=== PATIENT | female | born 1995 ===

== ENCOUNTER 2018-01-02 20:04 | Emergency (ER) | payer SELFPAY ==
[2018-01-02 20:15] VITALS: O2SAT 100
[2018-01-02] MEDS ORDERED: Sodium Chloride 0.9% 1,000 ML IV ONE (20:28)
[2018-01-02] MEDS ORDERED: Acetaminophen 650mg/20.3ml solution UD PO STA (20:29)
--- NOTE | 2018-01-02 20:33 | C.PDOC ---
History Of Present Illness 22 year old female with PMHx of anxiety presents to the ED for evaluation of a syncopal episode. Patient reports that while getting out of the shower today she blacked out for a few seconds, but she did not fall or hit her head. Patient is also c/o sore throat earlier today and states her hemorrhoids "are acting up". Patient denies fever, chills, nausea, vomit, diarrhea, back pain, LOC, headache. Time Seen by Provider: 01/02/18 20:17 Chief Complaint (Nursing): Syncope History Per: Patient History/Exam Limitations: no limitations Onset/Duration Of Symptoms: Hrs Current Symptoms Are (Timing): Gone Number Of Syncopal Episodes: 1 Activity At Onset Of Symptoms: Standing Associated Symptoms Preceding Syncopal Episode: No Predromal Symptoms (Sudden Onset) Seizure Or Post-ictal Symptoms: None Fall Associated With With Symptoms: No Recent travel outside of the [place]: No Additional History Per: Patient Past Medical History Reviewed: Historical Data, Nursing Documentation, Vital Signs Vital Signs: Last Vital Signs Temp 99.1 F 01/02/18 22:02 Pulse 82 01/02/18 22:02 Resp 16 01/02/18 22:02 BP 127/82 01/02/18 22:02 Pulse Ox 100 01/03/18 00:30 - Medical History PMH: Asthma Surgical History: No Surg Hx Family History: States: Unknown Family Hx - Social History Hx Alcohol Use: Yes Hx Substance Use: No - Immunization History Hx Tetanus Toxoid Vaccination: No Hx Influenza Vaccination: No Hx Pneumococcal Vaccination: No Review Of Systems Except As Marked, All Systems Reviewed And Found Negative. ENT: Positive for: Throat Pain Psych: Positive for: Anxiety Physical Exam - Physical Exam Appears: Non-toxic, No Acute Distress Skin: Normal Color, Warm, Dry Head: Atraumatic, Normacephalic Eye(s): bilateral: Normal Inspection Nose: No Discharge Oral Mucosa: Moist Throat: Erythema, No Exudate Neck: Normal ROM, Supple Chest: Symmetrical Cardiovascular: Rhythm Regular Respiratory: Normal Breath Sounds, No Rales, No Rhonchi, No Wheezing Gastrointestinal/Abdominal: Soft, No Tenderness, No Guarding, No Rebound Rectal: Deferred Extremity: Normal ROM, No Tenderness, No Swelling Neurological/Psych: Oriented x3, Normal Speech, Normal Motor, Normal Sensation Gait: Steady ED Course And Treatment - Laboratory Results Result Diagrams: 01/02/18 20:46 01/02/18 20:46 ECG: Interpreted By Me, Viewed By Me ECG Rhythm: Sinus Rhythm ECG Interpretation: No Acute Changes (ST/T) Rate From EC (BPM) O2 Sat by Pulse Oximetry: 100 (ON RA) Pulse Ox Interpretation: Normal Medical Decision Making Medical Decision Making: Impression: syncopal episode - "blacked out for seconds" did not fall hit head. ro infectious cardiac, metabolic etiology. . Plan: * EKG * CXR * Labs * IV fluids * Tylenol 975 mg PO * UA * Rapid strep group Patient refused rectal examh/h stable. hinds francsico syncope neg. mild leukoctyosis. pt now states no true syncope, only "felt very dizzy for seconds" . no fall. no head injury no loc. neuro intact. urine and uri treated. pt states feels well for dc. Disposition - Disposition Referrals: [facility] [Outside] [facility] [Outside] Aneta Galdamez [Staff Provider] - Lorena Oliva MD [Primary Care Provider] - Disposition: HOME/ ROUTINE Disposition Time: 12:24 Condition: STABLE Additional Instructions: please follow up with your doctor/ return to er with worsening symptoms or concerns. you are declining a rectal exam. please follow up with specialist. Prescriptions: Sulfamethoxazole/Trimethoprim [Bactrim DS 800 mg-160 mg] 1 tab PO BID #20 tab Instructions: Hemorrhoids, Sore Throat in Adults, Syncope (Fainting) (DC), Near Fainting Forms: [facility] (Kenyan) - Clinical Impression Clinical Impression: Dizziness, Near syncope - Scribe Statement The provider has reviewed the documentation as recorded by the Scribe Yogesh Bledsoe All medical record entries made by the Scribe were at my direction and personally dictated by me. I have reviewed the chart and agree that the record accurately reflects my personal performance of the history, physical exam, medical decision making, and the department course for this patient. I have also personally directed, reviewed, and agree with the discharge instructions and disposition.
[2018-01-02] MEDS ORDERED: Sodium Chloride 0.9% 1,000 ML ONE (20:41)
[2018-01-02 20:50] LABS: BASO % 0.4 % (0.0-2.0); EOS # 0.1 K/uL (0.0-0.7); EOS % 0.9 % (0.0-4.0); HEMOGLOBIN 10.8 g/dL (11.0-16.0); LYMPH # 2.8 K/uL (1.0-4.3); LYMPH % 24.2 % (20.0-40.0); MEAN CELL VOLUME 72.7 fL (81.0-99.0); MEAN CORPUSCULAR HEMOGLOBIN 22.7 pg (27.0-31.0); MEAN CORPUSCULAR HGB CONC 31.2 g/dL (33.0-37.0); MEAN PLATELET VOLUME 8.9 fL (7.2-11.7); MONO # 0.7 K/uL (0.0-0.8); NEUT # 7.8 K/uL (1.8-7.0); NEUT % 68.5 % (50.0-75.0); RBC 4.75 Mil/uL (3.80-5.20); RED CELL DISTRIBUTION WIDTH 17.4 % (11.5-14.5); WHITE BLOOD COUNT 11.4 K/uL (4.8-10.8)
[2018-01-02 20:53] LABS: HCG,QUALITATIVE URINE NEGATIVE (NEGATIVE)
[2018-01-02 20:55] LABS: SQUAMOUS EPITHIAL 3 /hpf (0-5); URINE BACTERIA RARE (<OCC); URINE BILIRUBIN NEGATIVE (NEGATIVE); URINE BLOOD NEGATIVE (NEGATIVE); URINE CLARITY Hazy (Clear); URINE COLOR Yellow (YELLOW); URINE GLUCOSE (UA) NORMAL (Normal); URINE LEUKOCYTE ESTERASE 1+ Leu/uL (Negative); URINE PROTEIN NEGATIVE (NEGATIVE)
[2018-01-02 20:56] LABS: PROTHROMBIN TIME 11.3 SECONDS (9.7-12.2)
[2018-01-02 21:01] LABS: ALB/GLOB RATIO 1.4 (1.0-2.1); ALBUMIN 4.6 g/dL (3.5-5.0); ALT/SGPT 20 U/L (9-52); AST/SGOT 22 U/L (14-36); BLOOD UREA NITROGEN 10 mg/dL (7-17); CALCIUM 9.3 mg/dl (8.6-10.4); GFR AFRICAN-AMERICAN > 60; GFR NON-AFRICAN AMERICAN > 60
[2018-01-02 22:02] VITALS: BP 127/82; PULSE 82; RESP 16; TEMP 99.1
--- NOTE | 2018-01-03 09:43 | RAD ---
HISTORY: COMPARISON: No prior. TECHNIQUE: Chest PA and lateral FINDINGS: LINES AND TUBES: None. LUNG AND PLEURA: The lungs are well inflated. The increased streaky opacities in the lungs. No focal consolidation. HEART AND MEDIASTINUM: The heart is not enlarged. The hilar and mediastinal contours are within normal limits. SKELETAL STRUCTURES: The bony structures are within normal limits for the patient's age. VISUALIZED UPPER ABDOMEN: Normal. OTHER FINDINGS: None. IMPRESSION: No active pulmonary disease.
--- NOTE | 2018-01-03 21:23 | CARD ---
APPROVED REPORT EKG Measurement Heart [id number] NM [id number] <Conclusion> Sinus rhythm with marked sinus arrhythmia Otherwise normal ECG
== END 2018-01-02 22:11 | disposition home or self-care (01) ==
LOC: C.ER 20:04 → SUPCPDRO 20:04 → C.ER 22:11
DX: R55 Syncope and collapse (principal); R42 Dizziness and giddiness
CPT/HCPCS: 71046; 80053; 81001; 82948; 84484; 84703; 85025; 85610; 85730; 87070; 87430; 93005; 96360; 99285; J7030